=== PATIENT | female | born 1970 | race Caucasian/White ===

== ENCOUNTER 2021-02-28 17:20 | Emergency (ER) | payer BC ==
--- OUTSIDE RECORDS SUMMARY | 2021-02-28 17:23 | XMS REPORT | Continuity of Care Document ---
:1970 Author Organization [facility] t Address [address] [place] [address] Dr. Nguyen [address] [place] [id number] Care Team Providers Name Role Phone Unavailable Unavailable Unavailable Problems This patient has no known problems. Allergies, Adverse Reactions, Alerts This patient has no known allergies or adverse reactions. Medications This patient has no known medications. Procedures This patient has no known procedures. Results This patient has no known results.
--- NOTE | 2021-02-28 20:29 | ER ---
Nurse's Notes [facility] Name: Isabel Portillo Age: 50 yrs Sex: Female : 1970 Arrival Date: 02/28/2021 Time: 17:44 Bed Waiting Private MD: Diagnosis: Presentation: 02/28 17:44 Chief complaint: Patient states: R flank/back pain for 2 weeks. Feels like a kidney ll1 stone. + nausea and diarrhea. No known fever. Pain to R flank increases with urination. On Zithromax for 3 days for URI. States flu/covid/strep were negative. Coronavirus screen: Client denies travel out of the [place] in the last 14 days. At this time, the client does not indicate any symptoms associated with coronavirus-19. Ebola Screen: Patient denies travel to an Ebola-affected area in the 21 days before illness onset. Initial Sepsis Screen: Does the patient meet any 2 criteria? No. Patient's initial sepsis screen is negative. Does the patient have a suspected source of infection? Yes: Other: flank. Risk Assessment: Do you want to hurt yourself or someone else? Patient reports no desire to harm self or others. Onset of symptoms was February 14, 2021. 17:44 Method Of Arrival: Ambulatory ll1 17:44 Acuity: AKANKSHA 3 ll1 Historical: - Allergies: 17:48 Levaquin; ll1 17:48 Cephalexin; ll1 17:48 PENICILLINS; ll1 17:48 Latex, Natural Rubber; ll1 17:48 Bactrim; ll1 - PMHx: 17:48 Hypertension; Kidney stones; Hypothyroidism; Diabetes - NIDDM; ll1 - PSHx: 17:48 ; Cholecystectomy; ll1 - Immunization history:: Client reports having NOT received the Covid vaccine. Flu vaccine is not up to date. - Social history:: Smoking status: Patient denies any tobacco usage or history of. Vital Signs: 17:44 BP 131 / 89; Pulse 82; Resp 17; Temp 97.5; Pulse Ox 99% ; Weight 105.23 kg; Height 5 ll1 ft. 2 in. (157.48 cm); Pain 8/10; 17:44 Body Mass Index 42.43 (105.23 kg, 157.48 cm) ll1 ED Course: 17:44 Patient arrived in ED. ll1 17:46 Triage completed. ll1 17:48 Arm band placed on. ll1 Administered Medications: No medications were administered Outcome: 20:28 Patient left the ED. iw Signatures: Kusum Stone, RN RN iw Saqib Quintero RN RN ll1
[2021-02-28 21:13] VITALS: BP 131/89; TEMP 97.5; O2SAT 99
== END 2021-02-28 20:28 | disposition left against medical advice (07) ==
LOC: ER 17:20
DX: Z53.21 Procedure and treatment not carried out due to patient leaving prior to being seen by health care provider (principal)
CPT/HCPCS: 99281